=== PATIENT | female | born 1980 | race Two or more races ===

== ENCOUNTER 2021-10-09 10:32 | Outpatient (REF) | payer MEDICAID, SELFPAY ==
--- NOTE | ~2021-10-09 | MM_ITS ---
EXAMINATION: MM SCREENING DIGITAL BREAST TOMOSYNTHESIS, BILATERAL CLINICAL INFORMATION: Screening. Asymptomatic. Age 41. Prior [id number] mammography at unknown facility. Family history breast cancer, maternal grandmother. The lifetime risk of breast cancer based on the Tyrer-Cuzick Model is 12%. COMPARISON: None. TECHNIQUE: Digital breast tomosynthesis is performed in both the craniocaudal and mediolateral oblique views along with computer-aided detection (CAD). Synthesized 2D images are generated from the tomosynthesis. FINDINGS: The breasts are heterogeneously dense, which may obscure small masses (ACR BI-RADS breast composition Category c). There are no significant masses, abnormal calcifications, or other abnormalities. The axilla and skin contours are unremarkable. MM/MM tomosynthesis screening BI IMPRESSION: No mammographic evidence of malignancy. ASSESSMENT: BI-RADS 1: Negative RECOMMENDATION: Routine annual mammography screening. This patient's information was entered into a reminder system with a target due date for their next mammogram.
== END 2021-10-09 10:33 | disposition home or self-care (01) ==
LOC: HO.MAMMO 10:32
PROVIDERS: PCP General Practice; Visit Provider General Practice
DX: Z12.31 Encounter for screening mammogram for malignant neoplasm of breast (principal)
CPT/HCPCS: 77063; 77067

== ENCOUNTER 2021-11-17 15:16 | Outpatient (REF) | payer MEDICAID, SELFPAY ==
--- NOTE | ~2021-11-17 | XR_ITS ---
EXAMINATION: XR ANKLE, LEFT XR FOOT, LEFT CLINICAL INFORMATION: Pain lateral ankle and foot COMPARISON: None TECHNIQUE: 2 views left ankle, 2 views left foot, and a lateral view of the combined left ankle and foot are obtained for a total of 5 views. FINDINGS: The malleoli appear intact and the ankle mortise is symmetric. There is no ankle fracture or dislocation. No ankle joint narrowing or erosive change or chondrocalcinosis. Talar dome shows no osteochondral lesion. No visible ankle capsular effusion. The visualized subtalar joint is unremarkable. The retrocalcaneal recess is preserved. There are small posterior and plantar calcaneal spurs. The midfoot and forefoot show no fracture or dislocation. There is a mild hallux valgus of approximately 22 degrees with medial bunion. The midfoot and forefoot shows no joint narrowing or erosive arthropathy. No periostitis. XR/XR foot LT min 3V IMPRESSION: -No fracture or dislocation ankle, foot. -Small posterior and plantar calcaneal spurs. -Mild hallux valgus.
--- NOTE | ~2021-11-17 | XR_ITS ---
EXAMINATION: XR ANKLE, LEFT XR FOOT, LEFT CLINICAL INFORMATION: Pain lateral ankle and foot COMPARISON: None TECHNIQUE: 2 views left ankle, 2 views left foot, and a lateral view of the combined left ankle and foot are obtained for a total of 5 views. FINDINGS: The malleoli appear intact and the ankle mortise is symmetric. There is no ankle fracture or dislocation. No ankle joint narrowing or erosive change or chondrocalcinosis. Talar dome shows no osteochondral lesion. No visible ankle capsular effusion. The visualized subtalar joint is unremarkable. The retrocalcaneal recess is preserved. There are small posterior and plantar calcaneal spurs. The midfoot and forefoot show no fracture or dislocation. There is a mild hallux valgus of approximately 22 degrees with medial bunion. The midfoot and forefoot shows no joint narrowing or erosive arthropathy. No periostitis. XR/XR ankle LT min 3V IMPRESSION: -No fracture or dislocation ankle, foot. -Small posterior and plantar calcaneal spurs. -Mild hallux valgus.
== END 2021-11-17 15:17 | disposition home or self-care (01) ==
LOC: HO.XRAY 15:16
PROVIDERS: PCP General Practice; Visit Provider General Practice
DX: M25.572 Pain in left ankle and joints of left foot (principal); M79.672 Pain in left foot
CPT/HCPCS: 73610; 73630

== ENCOUNTER 2024-11-30 14:14 | Outpatient (AMB) | payer MEDICAID, SELFPAY ==
--- NOTE | 2024-11-30 14:16 | A.OFFVIS_ITS ---
Vital Signs 11/30/24 14:17 Height 5 ft 2 in Weight 191 lb BMI 34.9 BP 134/89 Blood Pressure Location Rt brachial Position Sitting Respiration 16 Pulse 84 Pulse Source Pulse Oximeter Pulse Oximetry (%) 98 Oxygen Delivery Method Room Air Intake Visit Reasons: Fibromyalgia Patent Counsel Required: Yes Patent Counsel Name: Aristeo [id number] Accompanied by: Self / Same As Patient Allergies No Known Allergies Allergy (Verified 11/30/24 14:23) HPI Comments Details: The patient is a 44-year-old female presenting with chronic pain. Visit completed with Heavy Equipment Service Manager Aristeo #[id number] The pain is described as affecting the entire body, with a focus on the lower back region. The patient reports the onset of pain over four years ago, following an incident where a refrigerator fell on her. The pain has been persistent since the incident, with no significant relief from previous interventions. The patient has attempted various treatments including physical therapy, massages, water therapy, and injections, but none have provided lasting relief. Oxycodone provides some reduction in pain intensity, but not complete relief. A pinched nerve has been identified as a contributing factor to the patient's pain, as diagnosed by a palliative care nurse. Patient reports she has undergone imaging including MRI but the results are not available for review at this time. Additionally, the patient reports a bone spur in the foot, which was identified by a physician in [place]. The patient experiences swelling and misalignment in the foot, accompanied by knee pain. - Onset: Pain began over four years ago after a refrigerator accident. - Location: Primarily in the lower back, but affects the entire body. - Quality: Persistent pain with no significant relief from previous treatments. - Exacerbating factors: Inability to sit or stand for prolonged periods, loss of balance. - Relieving factors: Oxycodone provides partial relief. - Affect: Pain significantly impacts daily activities and psychological wellbeing. - Analgesia: Oxycodone, gabapentin provide partial relief, but not complete. - Adverse Effects: No specific adverse effects from medications discussed. - Activities of Daily Living: Pain interferes with sitting, standing, and balance. - Aberrant Drug Related Behaviors: No aberrant behaviors reported. Review of Systems Const Details: - Musculoskeletal: Reports chronic pain in the lower back and entire body, swelling and misalignment in the left foot, knee pain. - Neurological: Reports loss of balance, partial loss of sensation on the left side. Physical Exam Exam Exam: General: awake, alert, oriented. Answers questions appropriately. Fully engaged in examination. Skin: warm, dry, intact HEENT: Normocephalic. Hearing intact. Cardiac: External chest normal in appearance. Respiratory: No cough, audible wheezing or stridor. Abdomen: without gross distension. MS: No obvious swelling or deformities. Able to transition from sit to stand unassisted. Ambulates with use of a cane BLE strength 5/5 diffusely tender to palpation all over left foot: +allodynia. no apparent changes in hair, skin color/texture/temperature. Tenderness to palpation bilateral lumbar vertebrae and paraspinal muscles SLR neg bilaterally Neurological: Oriented to person, place, time and situation. Thought process intact. No gait abnormalities appreciated. Psychiatric: Appropriate mood and affect. Good judgment and insight. 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 I explained that this is an interventional pain management office and detailed the potential procedures we offer. She is not interested at this time. I advised that if she would like to proceed at any time in the future the plan would involve obtaining a copy of the MRI report to confirm the diagnosis of a pinched nerve and to determine the appropriate treatment options. The patient will need to sign a release form to obtain records from previous treatments, including those from the palliative care nurse and any other specialists involved. If the MRI confirms a pinched nerve, interventional management options such as injections or neuromodulation may be considered. In the meantime, the patient is advised to consult with her primary care physician for ongoing pain management. Patient requested referral for surgeon, she was referred back to her pcp to further discuss as there is no red flag symptoms or imaging results that would warrant neurosurgical referral. Patient was informed and verbally consented to the use of an ambient scribe for clinic note documentation during this visit. Patient Instructions: - When ready to proceed with interventional pain management sign a release form to obtain previous medical records and MRI results. - Consult with your primary care physician for ongoing pain management. - Consider discussing surgical options with your doctor if pain persists. Coding Level of Care Code New Pt Level 4 (63198) Diagnoses Chronic pain syndrome G89.4 Fibromyalgia M79.7 Low back pain M54.50 Left foot pain M79.672 tank terminal gauger current use of opiate analgesic Z79.891
[2024-11-30 14:17] VITALS: BP 134/89; PULSE 84; RESP 16; O2SAT 98; BMI 34.9
--- OUTSIDE RECORDS SUMMARY | 2024-11-30 14:17 | XMS_ITS | Encounter Summary ---
Author Organization [employer] Address [address] [facility] [address] [place] [address] Care Team Providers Care Inpatient Services Rn Name Role Phone Beatriz Pompa MD Primary Care Provider [phone] Yasemin Franco MD Primary Care Provider [phone] Beatriz Pompa MD Primary Care Provider [phone] Yasemin Franco MD Primary Care Provider [phone] Guy Pruitt Unavailable Unavail able Encounter Details Date Type Department Care Team (Late st Contact Info) Description 05/24/2022 Telephone [facility] [address] [place], [place] [phone] Beatriz Pompa MD [address] [place], [place] [phone] Social History Tobacco Use Types Packs/Day Years Used Date Smoking Tobacco: Never Assessed Comments Unknown Sex and Gender Information Value Date Recorded Sex Assigned at Female 02/08/2022 10:40 AM EDT Legal Sex Female 10:40 AM EDT Gender Identity Female 02/08/2022 10:40 AM EDT Sexual Orientation Choose not to disclose 2021 10:40 AM EDT documented as of this encounter Plan of Treatment Upcoming Encounters Date Type Department Care Team (Late st Contact Info) Description 12/21/2024 12:20 PM EDT Office Visit [facility] [address] [place] [address] Yasemin Franco MD [address] [place] [address] documented as of this encounter Visit Diagnoses Not on filedocumented in this encounter Additional Health Concerns Assessment Noted Time PHQ-9 Depression Total Score: 5 05/04/19 10:18 AM EST documented as of this encounter Care Teams Inpatient Services Rn Relationship Specialty Start Date End Date Beatriz Pompa MD [address] [place] [phone] PCP - General Family Medicine 10/07/21 02/08/23 Yasemin Franco MD [address] [place] [phone] PCP - General Family Medicine 02/09/23 04/12/23 Beatriz Pompa MD [address] [place] [phone] PCP - General Family Medicine 04/13/23 04/20/23 Yasemin Franco MD [address] [place] [phone] PCP - General Family Medicine 04/21/23 Guy Pruitt Community Health Worker 08/03/23 documented as of this encounter
--- OUTSIDE RECORDS SUMMARY | 2024-11-30 14:17 | XMS_ITS | Encounter Summary ---
Author Organization [facility] Address [address] [place] [phone] Phone Care Team Providers Care Orthopedic Radiologic Technologist Name Role Phone Janelle Felipe MD Primary Care Provider Unavailable Bishop Willis MD Primary Care Provider + Encounter Details Date Type Department Care Team (Late st Contact Info) Description 07/06/2023 Ancillary Orders [facility], X-Ray - [address] [place] [address] Yasemin Franco MD [address] [place] [phone] [email or web address] Mid back pain (Primary Dx); Other form of scoliosis, unspecified spinal region Social History Tobacco Use Types Packs/Day Years Used Date Smoking Tobacco: Never Assessed Education Answer Date Recorded Are you interested in more education? Not on jose alberto e 03/07/2023 Are you concerned about learning? Not on file 03/07/2023 No 03/07/2023 No 03/07/2023 Digital Access Answer Date Recorded No 03/07/2023 No 03/07/2023 Reliable internet access at home? Not on file 03/07/2023 Device with a working camera? Not on file Comments Unknown Sex and Gender Information Value Date Recorded Sex Assigned at Not on file Legal Sex Female 12:13 PM EST Gender Identity Not on file Sexual Orientation Not on file documented as of this encounter Plan of Treatment Not on file documented as of this encounter Results * XR Thoracolumbar Spine Junction Only 2 Views (07/06/2023 12:26 PM EDT) Anatomical Region Laterality Modality T-spine Computed Radiogr aphy 07/07/2023 10:1 1 AM EDT Impressions 07/07/2023 10:12 AM EDT Mild to moderate facet arthropathy at L4-5 and L5-S1. No significant change from prior exam. Narrative 07/07/2023 10:12 AM EDT XR THORACOLUMBAR SPINE JUNCTION ONLY 2 VIEWS Referring clinician's provided indication for this examination in [facility]: Pain REQUESTED INDICATION: Pain COMPARISON: XR LUMBOSACRAL SPINE 2-3 VIEWS FINDINGS: ALIGNMENT: No spondylolisthesis. VERTEBRAE: Vertebral body heights preserved. DISCS: Disc heights preserved. FACETS: Facet arthropathy at L4-5 and L5-S1. PARASPINAL SOFT TISSUES: Mild marginal spurring at the sacroiliac joint. A Procedure Note Margarita Taylor MD - 07/07/2023 XR THORACOLUMBAR SPINE JUNCTION ONLY 2 VIEWS Referring clinician's provided indication for this examination in [facility]:Pain REQUESTED INDICATION: Pain COMPARISON: XR LUMBOSACRAL SPINE 2-3 VIEWS FINDINGS: ALIGNMENT: No spondylolisthesis. VERTEBRAE: Vertebral body heights preserved. DISCS: Disc heights preserved. FACETS: Facet arthropathy at L4-5 and L5-S1. PARASPINAL SOFT TISSUES: Mild marginal spurring at the sacroiliac joint.A IMPRESSION: Mild to moderate facet arthropathy at L4-5 and L5-S1. No significant change from prior exam. Yasemin Franco MD IMG XR SPINE Final Result documented in this encounter Visit Diagnoses Diagnosis Mid back pain- Primary Other form of scoliosis, unspecified spinal region Mid back pain Other form of scoliosis, unspecified spinal region documented in this encounter Care Teams Orthopedic Radiologic Technologist Relationship Specialty Start [facility] - [facility]23 09/09/24 Bishop Willis MD [address] [place] [address], [facility] [address] [place] [address] [email or web address] PCP - General Obstetrics and Gynecology 09/10/24 documented as of this encounter Additional Source Comments The information contained in this document represents components of the legal health record. It is not the complete legal health record.[facility]
--- OUTSIDE RECORDS SUMMARY | 2024-11-30 14:17 | XMS_ITS | Clinical Summary ---
Author Organization [facility] Address [address] [place] [address] Care Team Providers Care Jacquard Loom Weaver Name Role Phone Shailesh Francis MD Primary Care Provider [phone] Allergies No known active allergies Medications Medication Sig Dispensed Refills Start Date End Date Status citalopram (CeleXA) 20 MG tablet TK 1 T PO QD 0 05/17/2019 Active metaxalone (SKELAXIN) 800 MG tablet Take 1 tablet (800 mg total) by mouth 3 (three) times a day. 30 tablet 0 06/18/2019 Active ibuprofen (ADVIL,MOTRIN) 800 MG tablet Take 1 tablet (800 mg total) by mouth every 8 (eight) hours as needed for pain. 30 tablet 0 06/18/2019 Active cyclobenzaprine (FLEXERIL) 10 MG tablet Take 1 tablet (10 mg total) by mouth 3 (three) times a day as needed for muscle spasms. 30 tablet 0 02/21/2021 Active oxyCODONE-acetaminoph en (PERCOCET) 5-325 MG per tablet Take 1 tablet by mouth every 8 (eight) hours as needed for pain for up to 8 doses. 8 tablet 0 02/21/2021 Active Active Problems No known active problems Family History Medical History Relation Name Comments Ovarian cancer Maternal Grandmother Relation Name Status Comments Maternal Grandmother Social History Tobacco Use Types Packs/Day Years Used Date Smoking Tobacco: Never Assessed Sex and Gender Information Value Date Recorded Sex Assigned at Female 06/18/2019 9:23 AM EDT Gender Identity Female 06/18/2019 9:23 AM EDT Sexual Orientation Not on file Job Start Date Occupation Industry Not on file Not on file Not on file Last Filed Vital Signs Vital Sign Reading Time Taken Comments Blood Pressure 120/70 02/21/2021 5:25 AM EST Pulse 72 02/21/2021 5:25 AM EST Temperature 36.6 C (97.8 F) 02/21/2021 5:25 AM EST Respiratory Rate 18 02/21/2021 5:25 AM EST Oxygen Saturation 98% 02/21/2021 5:25 AM EST Inhaled Oxygen Concentration - - Weight 86.8 kg (191 lb 5.8 oz) 02/21/2021 3:04 A M EST Height - - Body Mass Index - - Plan of Treatment Health Maintenance Due Date Last Done Comments Hepatitis B Vaccines (1 of 3 - 3-dose series) 1979 Hepatitis C Screening 1979 COVID-19 Vaccine (#1) 1979 Depression Screening 1991 Preventative Health Evaluation 1997 DTap / Tdap / Td (1 - Tdap) 1998 Cervical Cancer Screening (P ap Smear) 01/12/2000 Colon Cancer Screening (Colonoscopy) 01/12/2024 Influenza Vaccine (#1) 2024 Pneumococcal Vaccine Aged Out No long er eligible based on patient's age to complete this topic RSV Ped < 20 months Aged Out No longe r eligible based on patient's age to complete this topic Care Teams Jacquard Loom Weaver Relationship Specialty Start Date End Date Shailesh Francis MD [address] [place] [address] PCP - General Internal Medicine 12/10/20
--- OUTSIDE RECORDS SUMMARY | 2024-11-30 14:17 | XMS_ITS | Patient Health Record ---
Author Organization [facility] Address [address] [place] [address] Care Team Providers Care Engineering Project Manager Name Role Phone Cate Faria Primary Care Provider Unavailab DANETTE Orozco Unavailable [phone] Allergies No Known Allergies Reason For Referral No Information Medications Medication SIG (Take, Route, Frequency, Duration) Notes Start Date End Date Status Banophen 50 MG 1 capsule at bedtime as needed Orally Once a day Active busPIRone HCl 5 MG 1 tablet Orally Twic e a day Active Meloxicam 7.5 MG 1 tablet Orally as n eeded qd; Duration: 30 days 12/13/2019 Active ProAir HFA 108 (90 Base) MCG/ACT 1 puff as needed Inhalation every 4 hrs Active Vitamin D (Ergocalciferol) 1.25 MG (78297 UT) 1 capsule Orally Activ e Flovent HFA 220 MCG/ACT 1 puff Inhalatio n Twice a day Active Metaxalone 800 MG 1 tablet Orally Thre e times a day Active Gabapentin 800 MG 1 tablet Orally Once a day Active Abilify 10 MG 1 tablet Orally Once a day Active Zoloft 50 MG 1 tablet Orally Once a day Active Diclofenac Sodium ER 100 MG 1 tablet Orally Once a day A ctive Albuterol Sulfate (2.5 MG/3ML) 0.083% 3 ml as needed Inhalation every 6 hrs Active Social History Tobacco Use: Social History Observation Description Date Details (start date - stop date) Never Smoker NA - NA Tobacco Use/Smoking Question Answer Notes Are you a nonsmoker Alcohol Screen (Audit-C) Question Answer Notes Did you have a drink containing alcohol in the p ast year? No Points 0 Interpretation Negative Problems Problem Type SNOMED Code ICD Code Onset Dates Problem Status W/U Status Risk Notes Problem Cervical spondylosis without myelopathy (515579588) Spondylosis without myelopathy or radiculopathy, cervical region (M47.812) Active confirmed Problem Lumbar radiculopathy (677203150) Lumbar radiculopathy (M54.16) Active confirmed Problem Cervical radiculopathy (69885791) Cervical radiculopathy (M54.12) Active confirmed Problem Lumbosacral spondylosis without myelopathy (08948376) Spondylosis of lumbar region without myelopathy or radiculopathy (M47.816) Active confirmed Problem Muscle pain (58476193) Myalgia, other site (M79.18) Active confirmed Plan Of Treatment No Information Insurance Providers Payer Name Payer Address Payer Phone Subscriber Number Group Number Insured Name Patient Relationship to Insured Coverage Start Date Coverage End Date [employer] of [place] [address] [place] [address] [id number] Nicky Collier Self - patient is the insured Medical (General) History Surgical History Surgery Date(Month/Year)
--- OUTSIDE RECORDS SUMMARY | 2024-11-30 14:17 | XMS_ITS | Clinical Summary ---
Author Organization [facility] Address [address] [place] [address] Care Team Providers Care Paint Department Supervisor Name Role Phone Shailesh Francis A Primary Care Provider [phone] Allergies No known active allergies Medications Symbicort 160-4.5 mcg/actuation inhaler INHALE 1 TO 2 PUFFS BY MOUTH TWICE DAILY 04/12/2020 Active citalopram (celeXA) 20 mg tablet Take 20 mg by mouth. 03/27/2020 Active DULoxetine (CYMBALTA) 60 mg capsule Take by mouth. 03/17/2020 Active QUEtiapine (SEROquel) 200 mg tablet Take 200 mg by mouth nightly. 03/27/2020 Active 59/iron/folic/d ss/dha (CITRANATAL HARMONY ORAL) TAKE DIRECTED 08/22/2020 Active predniSONE (DELTASONE) 10 mg tablet Take as directed 42 tablet 08/27/2020 Active Family History Relation Status Comments Father Mother Alive Social History Tobacco Use Types Packs/Day Years Used Date Smoking Tobacco: Never Smokeless Tobacco: Never Alcohol Use Standard Drinks/Week Comments Not Currently 0 (1 standard drink = 0.6 oz pur e alcohol) Comments Unknown Sex and Gender Information Value Date Recorded Sex Assigned at Not on file Legal Sex Female 2:52 PM EST Gender Identity Not on file Sexual Orientation Not on file Last Filed Vital Signs Vital Sign Reading Time Taken Comments Blood Pressure - - Pulse - - Temperature - - Respiratory Rate - - Oxygen Saturation - - Inhaled Oxygen Concentration - - Weight 88.5 kg (195 lb) 08/27/2020 2:55 PM EDT Height 162.6 cm (5' 4 ) 08/27/2020 2:55 PM EDT Body Mass Index 33.47 08/27/2020 2:55 PM EDT Plan of Treatment Health Maintenance Due Date Last Done Comments Breast Cancer Screening 1979 CT Colonography 1979 Colonoscopy 1979 Colorectal Cancer Screening 1979 FIT-DNA (Cologuard) 1979 FIT 1979 FOBT 1979 Flex Sigmoidoscopy - 5y 1979 HIV Screening 1979 DTaP,Tdap,and Td Vaccines (1 - Tdap) 1997 Hepatitis B Vaccines (1 of 3 - 19+ 3-dose series) 1998 Pap Smear 01/12/2000 Cervical Cancer Screening 2009 HPV/Cotest 2009 COVID-19 Vaccine ( - 2023-2 5 season) 2023 Influenza Vaccine (#1) 2024 Zoster Vaccines (1 of 2) 2029 HPV Vaccines Aged Out No longer eligi ble based on patient's age to complete this topic Hepatitis A Vaccines Aged Out No long er eligible based on patient's age to complete this topic MMR Vaccines Aged Out No longer eligi ble based on patient's age to complete this topic Meningococcal Vaccine Aged Out No sarina artis eligible based on patient's age to complete this topic Pneumococcal Vaccine: Pediat rics (0 to 5 Years) and At-Risk Patients (6 to 49 Years) Aged Out No longer eligible b ased on patient's age to complete this topic Insurance MEDICAID DIEGOKY D Care Teams Paint Department Supervisor Relationship Specialty Start Date End Date Shailesh Francis [address] [place] [id number] PCP - General Internal Medicine 09/04/20
--- OUTSIDE RECORDS SUMMARY | 2024-11-30 14:17 | XMS_ITS | Clinical Summary ---
Author Organization [address] [facility] Address [address] [place] [address] Phone Care Team Providers Care Director On Air Name Role Phone Beatriz Pompa MD Primary Care Provider [phone] Allergies No known active allergies Medications multivit-min/iro n/folic acid/K (ADULTS MULTIVITAMIN ORAL) Take by mouth. Activ e albuterol 2.5 mg /3 mL (0.083 %) nebulizer solution Take 1 Vial by nebulization every 4 hours as needed. Active albuterol HFA (PROAIR HFA ; PROVENTIL HFA ; VENTOLIN HFA) 90 mcg/actuation inhaler Inhale 2 Puffs into the lungs every 4 hours as needed. Active budesonide-formo teroL (SYMBICORT) 160-4.5 mcg/actuation inhaler Inhale 2 Puffs into the lungs 2 times daily. Active cyclobenzaprine (FLEXERIL) 5 mg tablet Take 1 Tablet by mouth 3 times daily as needed. Active DULoxetine (CYMBALTA) [address] capsule Take by mouth. Acti ve ferrous sulfate 325 mg (65 mg elemental iron) tablet Take 1 Tablet by mouth daily. Active gabapentin (NEURONTIN) 800 mg tablet Take 1 Tablet by mouth 3 times daily. Active ibuprofen (ADVIL,MOTRIN) 800 mg tablet Take 1 Tablet by mouth every 8 hours as needed. Active lidocaine (LIDODERM) 5 % patch Place 1 Patch onto the skin every 24 hours. Apply for no more than 12 hours in any 24 hour period. Active montelukast (SINGULAIR) 10 mg tablet Take 1 Tablet by mouth at bedtime. Active QUEtiapine (SEROquel) 100 mg tablet Take 1 Tablet by mouth 2 times daily. Active Active Problems Problem Noted Date Diagnosed Date Anemia 02/25/2022 DM (diabetes mellitus) (CMS/HCC V24, CMS/HCC V28 ) 02/25/2022 Vitamin D deficiency 02/25/2022 PTSD (post-traumatic stress disorder) 02/25/2022 DJD (degenerative joint disease), lumbar 022 Depression 02/25/2022 Encounters Date Type Department Care Team Description 10/25/2024 2:30 PM EDT Consult Orthopedic Surgery - [address] [id number] Elie Michael, DPM Complex regional pain syndrome type 2 of left lower extremity (Primary Dx); Bunion of left foot from Last 3 Months Surgical History Surgery Date Site/Laterality Comments SECTION PROCEDURE: OR DELIVERY ONLY OVARIAN CYST REMOVAL PROCEDURE: OR OVARIAN CYSTECTOMY UNI/BI OTHER SURGICAL HISTORY PROCEDURE: OR CURETTAGE Medical History Medical History Date Comments Anemia DX:Anemia DM (diabetes mellitus) ([facility] V24, [facility] V28) DX:DM (diabetes mellitus) ([facility]) PTSD (post-traumatic stress disorder) DX:PTSD (post-traumatic stress disorder) Depression DX:Depression Vitamin D deficiency DX:Vitamin D deficiency DJD (degenerative joint disease), lumbar DX:DJD (degenerative joint disease), lumbar Social History Tobacco Use Types Packs/Day Years Used Date Smoking Tobacco: Never Assessed Comments Unknown Sex and Gender Information Value Date Recorded Sex Assigned at Not on file Legal Sex Female 4:39 AM EST Gender Identity Not on file Sexual Orientation Not on file Obstetrics History Last Filed Vital Signs Vital Sign Reading Time Taken Comments Blood Pressure - - Pulse - - Temperature - - Respiratory Rate - - Oxygen Saturation - - Inhaled Oxygen Concentration - - Weight 78.5 kg (173 lb) 03/18/2022 10:23 AM EST Height 167.6 cm (5' 6 ) 03/18/2022 10:23 AM EST Body Mass Index 27.92 03/18/2022 10:23 AM EST Plan of Treatment Health Maintenance Due Date Last Done Comments Diabetes: Annual Foot Exam 1989 Diabetes: Annual Retina Eye Exam 1989 DTaP,Tdap,and Td Vaccines (1 - Tdap) 1998 Hepatitis A Vaccines (1 of 2 - Risk 2-dose series) 1998 Hepatitis B Vaccines (1 of 3 - 19+ 3-dose series) 1998 Pneumococcal Vaccine: Pediatrics (0 to 5 Years) and At-Risk Patients (6 to 49 Years) (1 of 2 - PCV) 1998 Cervical Cancer Screening: P ap Smear 01/12/2000 Diabetes: Annual GFR (Glomerular Filtration Rate) 07/03/2020 07/04/2019 Cholesterol Screening (Lipid Panel) 03/14/2022 Colorectal Cancer Screening: Colonoscopy 03/14/2022 HIV Screening 03/14/2022 Hepatitis C Screening 03/14/2022 Social Influencers of Health Screening 03/14/2022 Diabetes: Annual Urine Albumin-Creatinine Ratio (uACR) 05/27/2023 Diabetes: Blood Sugar Contro l Test (HGBA1C) 05/27/2023 06/28/2022 COVID-19 Vaccine (2023-2 5 season) 2023 Depression Screening 04/11/2024 Hypertension/CHF/CAD Annual BMP Blood Test 10/25/2024 07/04/2019 Influenza Vaccine (#1) 2024 Breast Cancer Screening 09/10/2026 09/11/19, 10/09/2021, 05/04/2019 HIB Vaccines Aged Out No longer eligi ble based on patient's age to complete this topic HPV Vaccines Aged Out No longer eligi ble based on patient's age to complete this topic IPV Vaccines Aged Out No longer eligi ble based on patient's age to complete this topic MMR Vaccines Aged Out No longer eligi ble based on patient's age to complete this topic Meningococcal ACWY Vaccine Aged Out N o longer eligible based on patient's age to complete this topic Meningococcal B Vaccine Aged Out No l onger eligible based on patient's age to complete this topic RSV Immunization Patients Under 20 months Aged Out No longer eligible b ased on patient's age to complete this topic Varicella Vaccines Aged Out No longer eligible based on patient's age to complete this topic Procedures Procedure Name Priority Date/Time Associated Diagnosis Comments XR FOOT 3+ VIEWS LEFT Routine 10/25/2024 2:55 PM EDT Bunion of left foot MAMMOGRAM SCREENING BILATERAL 3D SANTI WITH CAD Routine 05/04/2019 3:25 PM EST Encounter for screening mammogram for malignant neoplasm of breast from Last 3 Months or Most Recently Relevant to Health Maintenance Results * XR Foot 3+ Views Left (10/25/2024 2:55 PM EDT) Anatomical Region Laterality Modality Lower Extremities, Foot Left Computed Radiography Narrative 10/25/2024 5:06 PM EDT Left foot 3 views Mild bunion deformity noted No fracture no significant dislocation Radiodensity noted lateral aspect of fifth metatarsal base deep to skin us Elie Michael DPM IMG XR PROCEDURES Final R esult * MAMMOGRAM SCREENING BILATERAL 3D SANTI WITH CAD (05/04/2019 3:25 PM EST) Anatomical Region Laterality Modality Mammography 02/21/2019 2:55 PM EST Narrative 05/04/2019 3:45 PM EST This is a summary report. The complete report is available in the patient's medical record. If you cannot access the medical record, please contact the sending organization for a detailed fax or copy. INDICATION FOR EXAM: Screening mammogram. COMPARISON: Baseline study Mammograms analyzed using the [employer] Computer Aided Diagnostic System (CAD). Low dose digital tomosynthesis was performed. 2D and 3D mammographic images were obtained in craniocaudad and mediolateral oblique projections. No skin thickening or focal skin retraction. The breast tissue is heterogeneously dense, which could obscure detection of small masses (approximately 51% - 75% glandular). No significant asymmetry, mass, architectural distortion, trabecular thickening or suspicious calcifications. IMPRESSION: The breast tissue is heterogeneously dense (approximately 51% - 75% glandular). No mammographic evidence of malignancy. NOTE: Additional imaging, such as ultrasound, may be helpful for further evaluation of dense breasts. ACR BI-RADS CATEGORY: 1 Negative Report reviewed and signed by : Dr. Shiraz Calles MD on 05/04/2019 3:45 PM. Workstation Name - [id number] Procedure Note Yehuda Calles MD - 04/03/2022 This is a summary report. The complete report is available in thepatient's medical record. If you cannot access the medical record, pleasecontact the sending organization for a detailed fax or copy. INDICATION FOR EXAM: Screening mammogram. COMPARISON: Baseline study Mammograms analyzed using the [employer] Computer Aided Diagnostic System(CAD). Low dose digital tomosynthesis was performed. 2D and 3D mammographicimages were obtained in craniocaudad and mediolateral obliqueprojections. No skin thickening or focal skin retraction. The breast tissue isheterogeneously dense, which could obscure detection of small masses(approximately 51% - 75% glandular). No significant asymmetry, mass,architectural distortion, trabecular thickening or suspiciouscalcifications. IMPRESSION: The breast tissue is heterogeneously dense (approximately 51% - 75%glandular). No mammographic evidence of malignancy. NOTE: Additional imaging, such as ultrasound, may be helpful for furtherevaluation of dense breasts. ACR BI-RADS CATEGORY: 1 Negative Report reviewed and signed by : Dr. Shiraz Calles MD on 05/04/2019 3:45PM. Workstation Name - [id number] [facility] BI PROCEDURES Final Result from Last 3 Months or Most Recently Relevant to Health Maintenance Insurance MEDICAID - [place] Care Teams Director On Air Relationship Specialty Start Date End Date Beatriz Pompa MD [address] [place] [address] PCP - General 01/13/22
== END 2024-11-30 15:47 | disposition home or self-care (01) ==
PROVIDERS: PCP Family Medicine; Visit Provider Registered Nurse Emergency
DX: G89.4 Chronic pain syndrome (principal); M79.7 Fibromyalgia; M54.50 Low back pain, unspecified; M79.672 Pain in left foot; Z79.891 Long term (current) use of opiate analgesic
CPT/HCPCS: 99204

== ENCOUNTER → 2024-11-30 14:14 | Outpatient (BNVA) | payer MEDICAID, SELFPAY | PROVIDERS: PCP Family Medicine; Visit Provider Registered Nurse Emergency | DX: M79.7 Fibromyalgia (principal); M54.50 Low back pain, unspecified; M79.672 Pain in left foot; Z79.891 Long term (current) use of opiate analgesic; G89.4 Chronic pain syndrome | CPT/HCPCS: 99212 ==